=== PATIENT | male | born 1985 ===

== ENCOUNTER 2018-08-04 06:24 | Day surgery (SDC) | payer OTHER ==
[~2018-08-04] VITALS: Ht 170.2 cm; Wt 88.5 kg
[~2018-08-04 06:24] MED LIST: CLOB.05TO TOP; GEMF600 PO; Ketoconazole15 GM TOP
--- NOTE | 2018-08-04 07:09 | NUR ---
PATIENT GAVE PERMISSION FOR ME TO CARE FOR HIM TODAY 08/04/18. History, Chart, Medications and Allergies reviewed before start of procedure.Patient confirms NPO status and agrees with scheduled surgery. Patient reports completing Chlorhexadine shower X2 prior to admission to hospital.Surgical site prepped with 2% Chlorhexidine cloth wipe. Lungs clear T/O to Auscultation.
--- NOTE | 2018-08-04 07:25 | NUR ---
STUDENT NURSE ASSISTING IN PREOPERATIVE CARE. AGREE WITH HER CHARTING AND CARE.
--- NOTE | 2018-08-04 11:00 | NUR ---
1050-SMALL AMT CLEAR MUCOUS EMESIS. C/O ABD PAIN; CANT GIVE A 1-10 NUMBER FOR PAIN. 1100- STATES NAUSEA IS GONE BUT STILL DOESNT "FEEL GOOD". O2 SATS DROPPING BELOW 90% WHEN ASLEEP SO O2 APPLIED AT 2L/NC. GOOD DB/COUGH EFFORT WITH ENCOURAGEMENT.
--- NOTE | 2018-08-04 12:59 | NUR ---
Patient up to Ambulate independently. Gait steady. DIZZINESS WITH POSITION CHANGE AND/OR OPENING EYES, OCC NAUSEA ACCOMPANIES DIZZINESS, NO EMESIS, PT TAKES APPOX 30MIN TO DRESS AND XFER TO WC. PHENERGAN DRAWN UP, PT REFUSES HE DOES NOT WANT ANY MEDICATIONS WHICH SEDATE HIM. Discharge instructions reviewed with patient. Patient verbalizes understanding. Copy given to patient to take home. Patient States Post-Procedure ride home has been arranged. Discharged via wheelchair to private car for ride home.
== END 2018-08-04 23:01 | disposition home or self-care (01) ==
LOC: ORSCMMR 06:24 → ORD 07:30 → ORSCMMR 23:01
PROVIDERS: Surgery
PROC: 8E0W4CZ Robotic Assisted Procedure of Trunk Region, Percutaneous Endoscopic Approach (ICD-10-PCS; principal; 2018-08-04 07:30)
PROC: 0YUA4JZ Supplement Bilateral Inguinal Region with Synthetic Substitute, Percutaneous Endoscopic Approach (ICD-10-PCS; principal; 2018-08-04 07:30)
DX: K40.20 Bilateral inguinal hernia, without obstruction or gangrene, not specified as recurrent (principal); Z79.899 Other long term (current) drug therapy
CPT/HCPCS: 49650; S2900; A9270-GY; C1781; J0690; J1100; J1885; J2250; J2405; J2550; J2704; J2710; J2765; J3010; J7120